=== PATIENT | female | born 1985 | race Caucasian/White ===

== ENCOUNTER 2017-04-10 07:06 | Emergency (ER) | payer OTHER ==
[2017-04-10 07:14] VITALS: BMI 32.4
[2017-04-10] MEDS ORDERED: AMOX TR/POT CLAV 875MG/125MG TABLETS (FP) PO ONE (07:52)
[2017-04-10] MEDS ORDERED: DIPHTH,PERTUSS(ACELL),TET 0.5 ML DISP.SYRIN IM ONE (07:54)
[2017-04-10] MEDS ORDERED: ACETAMINOPHEN 325 MG TABLET (FP) PO ONE (07:55)
[2017-04-10] MEDS ORDERED: ACETAMINOPHEN 325 MG TABLET (FP) ONE (07:59)
[2017-04-10] MEDS ORDERED: AMOX TR/POT CLAV 875MG/125MG TABLETS (FP) ONE (07:59)
--- NOTE | 2017-04-10 08:05 | PDOC ---
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 There are puncture wounds that are not bleeding. Patient states that occurred today. The cat is vaccinated and is inpatient and under treatment with heart failure. The cat is not rabid. Denies any redness or pus. Last tetanus status is unknown. Patient is right-hand dominant. - Physicial Exam PE: 04/10/17 08:05 GENERAL: Awake, alert, and fully oriented, in no acute distress. HEAD: No signs of trauma EYES: PERRLA, EOMI, sclera anicteric, conjunctiva clear ENT: Auricles normal inspection, hearing grossly normal, nares patent, oropharynx clear without exudates. ABDOMEN: Soft, nontender, normoactive bowel sounds. No guarding, no rebound. No masses EXTREMITIES: Normal range of motion, no edema. No clubbing or cyanosis. No cords, erythema, or tenderness. RUE: 2+ radial pulse. sensation intact throughout median/radian/ulnar nerve. Full range of motion of all digits. Small puncture wounds overlying right 2nd digit over the proximal phalanx. < 2 sec cap refill. No erythema or drainage or purulence. NEUROLOGICAL: Cranial nerves II through XII grossly intact. Normal speech, normal gait SKIN: Warm, Dry, normal turgor, no rashes or lesions noted. - Medical Decision Making 04/10/17 08:06 Vital Signs Temp Pulse Resp BP Pulse Ox 98.0 F 82 18 133/77 99 04/10/17 07:11 04/10/17 07:11 04/10/17 07:11 04/10/17 07:11 04/10/17 07:11 Patient with a cat wound not currently infected this time. However, patient will most definitely need prophylactic antibiotics, Augmentin. We'll contact the Department of Health and fax over animal bite form. Tetanus ordered. I instructed the patient to return to the ED in 2 days for wound check. I advised that if she noticed symptoms of infection to return sooner to the ER. Patient verbalized understanding agrees with plan.
--- NOTE | 2017-04-10 08:29 | PDOC ---
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 Patient was trying to feed the cat a pill when she was bitten in the proximal phalange right index finger. Single bite, not actively bleeding. Cat has been confirmed to have been vaccinated for rabies in his records. Currently observed in hospital Timing/Duration: reports: just prior to arrival Severity: Yes: mild Location: reports: extremities Past History - Past Medical History Allergies/Adverse Reactions: Allergies Allergy/AdvReac Type Severity Reaction Status Date / Time shellfish derived Allergy Vomiting Verified 04/10/17 07:14 Home Medications: Ambulatory Orders Albuterol Sulfate Inhaler - [Ventolin Hfa Inhaler -] 1 - 2 inh PO BID 04/10/17 Amox-Tr/K Cl [Augmentin - 875Mg Tablet] 1 tab PO BID #14 tablet 04/10/17 Sertraline HCl [Zoloft] 150 mg PO DAILY 04/10/17 Asthma: Yes Psychiatric Problems: Yes (ANXIETY/DEPRESSION) - Psycho/Social/Smoking Cessation Hx Anxiety: Yes Suicidal Ideation: No Smoking History: Never smoked Hx Alcohol Use: Yes (social) Drug/Substance Use Hx: No Substance Use Type: None Review of Systems - Review of Systems Constitutional: No: Symptoms Reported HEENTM: No: Symptoms Reported Respiratory: No: Symptoms reported Cardiac (ROS): No: Symptoms Reported ABD/GI: No: Symptoms Reported : No: Symptoms Reported Musculoskeletal: No: Symptoms Reported, Joint Stiffness Integumentary: No: Bruising, Change in Hair/Nails, Lesions, Pallor Neurological: No: Symptoms reported, Numbness, Paresthesia, Tingling, Tremors, Weakness *Physical Exam - Vital Signs Last Vital Signs Temp Pulse Resp BP Pulse Ox 98.0 F 82 18 133/77 99 04/10/17 07:11 04/10/17 07:11 04/10/17 07:11 04/10/17 07:11 04/10/17 07:11 - Physical Exam General Appearance: Yes: Nourished, Appropriately Dressed. No: Apparent Distress HEENT: positive: EOMI, [place] Neck: positive: Normal Thyroid. negative: Tender Respiratory/Chest: positive: Lungs Clear, Normal Breath Sounds. negative: Chest Tender, Respiratory Distress Cardiovascular: positive: Regular Rhythm, Regular Rate, S1, S2 Gastrointestinal/Abdominal: positive: Normal Bowel Sounds Musculoskeletal: positive: Normal Inspection. negative: Decreased Range of Motion Extremity: positive: Normal Capillary Refill, Normal Inspection, Normal Range of Motion (Puncture wounds on ventral and dorsal proximal phalange of right index finger, not actively bleeding. cap refil 2sec) ED Treatment Course - Medications Given in the ED: ED Medications Discontinued Medications Generic Name Dose Route Start Last Admin Trade Name Freq PRN Reason Stop Dose Admin Acetaminophen 650 mg 04/10/17 07:55 04/10/17 08:06 Tylenol - PO 04/10/17 07:56 650 mg ONCE ONE Administration Amoxicillin/Clavulanate Potassium 1 tab 04/10/17 07:52 04/10/17 08:06 Augmentin - 875mg Tablet PO 04/10/17 07:53 1 tab ONCE ONE Administration Diphtheria/Tetanus/Acell Pertussis 0.5 ml 04/10/17 07:54 04/10/17 08:05 Boostrix - IM 04/10/17 07:55 0.5 ml .ONCE ONE Administration Medical Decision Making - Medical Decision Making 04/10/17 09:02 31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 Animal vaccinated according to records. Wound was thoroughly cleaned according to vet. hospital procedure. Patient given Augmentin PO + 7 days prescription as well as Tylenol for pain management and Tdap booster. Patient to come back in two days for wound check. Faxed official animal bite form to [place] [facility]. [facility] did the same according to patient. 04/10/17 09:18 *DC/Admit/Observation/Transfer Diagnosis at time of Disposition: Cat bite of finger - Discharge Dispostion Admit: No - Prescriptions Prescriptions: Amox-Tr/K Cl [Augmentin - 875Mg Tablet] 1 tab PO BID #14 tablet - Referrals Referrals: STAFF,NOT ON [Primary Care Provider] - - Patient Instructions Printed Discharge Instructions: DI for Animal Bites, How to Care for a Domestic Animal Bite Additional Instructions: Come back to Emergency Department in 2 days for wound check. Please take antibiotic as prescribed. - Post Discharge Activity Work/School Note: Back to Work
[2017-04-10 09:38] VITALS: BP 114/75; PULSE 81; TEMP 98.1
== END 2017-04-10 09:30 | disposition home or self-care (01) ==
LOC: JER 07:06
PROC: 3E0234Z Introduction of Serum, Toxoid and Vaccine into Muscle, Percutaneous Approach (ICD-10-PCS; principal; 2017-04-10)
DX: S61.250A Open bite of right index finger without damage to nail, initial encounter (principal); W55.01XA Bitten by cat, initial encounter; Y93.K9 Activity, other involving animal care; Y92.238 Other place in hospital as the place of occurrence of the external cause; Y99.0 Civilian activity done for income or pay
CPT/HCPCS: 90715; 99282-25

== ENCOUNTER 2017-04-12 07:22 | Emergency (ER) | payer OTHER ==
[2017-04-12 07:54] VITALS: BP 119/66; PULSE 67; TEMP 98; BMI 32.4
--- NOTE | 2017-04-12 08:38 | PDOC ---
Suture Removal/Wound Check HPI - History of Present Illness Chief Complaint: Edema Stated Complaint: WOUND EVALUATION Time Seen by Provider: 04/12/17 08:13 History Source: Yes: Patient Exam Limitations: Yes: No Limitations Treated at: [facility] ED - Previous ED Treatment Type of procedure performed on last visit: Yes: Other (bite wound) Tetanus Immunization: Yes: Up to Date Antibiotics Prescribed: Yes - Onset of Previous Treatment Comment:: 04/12/17 13:25 Patient here for evaluation of Bite to her left index finger sustained 2 days ago. 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 Has been taking Augmentin, and states is mildly improvingless painful, swollen, and no drainage today. Past History - Travel Traveled outside of the country in the last 30 days: No Close contact w/someone who was outside of country & ill: No - Past Medical History Allergies/Adverse Reactions: Allergies shellfish derived Allergy (Verified 04/12/17 07:53) Vomiting Home Medications: Ambulatory Orders Albuterol Sulfate Inhaler - [Ventolin Hfa Inhaler -] 1 - 2 inh PO BID 04/10/17 Amox-Tr/K Cl [Augmentin - 875Mg Tablet] 1 tab PO BID #14 tablet 04/10/17 Sertraline HCl [Zoloft] 150 mg PO DAILY 04/10/17 General: Yes: no pertinent history Surgical History: Yes: No Surgical History - Social History Smoking Status: Never smoked Suture Removal/Wound Check PE - Physical Exam Laceration/Wound Check Symptoms: reports: None Current Severity Level: None Location of Laceration/Wound: left: Finger (has swelling to the PIP of left index finger able to flex and extend but has tenderness along the volar surface. Redness is marked, patient reports is much improved from yesterday. Denies fever ,denies drainage today.) *Review of Systems - Review of Systems Able to Perform ROS?: Yes Constitutional: Yes: Symptoms Reported, See HPI. No: Malaise HEENTM: No: Symptoms Reported Musculoskeletal: Yes: Symptoms Reported, See HPI, Joint Pain, Joint Swelling ( left index finger ) Integumentary: Yes: Symptoms Reported, Erythema All Other Systems: Reviewed and Negative Medical Decision Making - Medical Decision Making 04/12/17 08:40 Erythematous area was marked and strict instructions for elevation and soaking for the next few days. *DC/Admit/Observation/Transfer Diagnosis at time of Disposition: Encounter for wound re-check - Discharge Dispostion Disposition: HOME Condition at time of disposition: Stable Admit: No - Patient Instructions Printed Discharge Instructions: DI for Cat Bite Additional Instructions: Rest, keep hand highly elevated Soak hand as often as possible and is warm and water as possible Follow-up with PMD this week for reevaluation and work clearance Return immediately to emergency department for worsening swelling, redness, pain or fevers. Complete Augmentin as prescribed - Post Discharge Activity Work/School Note: Back to Work
== END 2017-04-12 08:49 | disposition home or self-care (01) ==
LOC: JERFT 07:22
DX: Z09 Encounter for follow-up examination after completed treatment for conditions other than malignant neoplasm (principal)
CPT/HCPCS: 99281-25

== ENCOUNTER 2017-09-03 19:47 | Emergency (ER) | payer SELFPAY ==
[2017-09-03 19:55] VITALS: BP 129/80; PULSE 90; TEMP 97.8; BMI 36.6
[2017-09-03] MEDS ORDERED: SERTRALINE HCL 50 MG TABLET (FP) PO ONE (19:55)
--- NOTE | 2017-09-03 19:55 | PDOC ---
History of Present Illness - General History Source: Patient Exam Limitations: No Limitations - History of Present Illness Initial Comments: 09/03/17 19:59 The patient is a 32 year old female, with a significant past medical history of asthma and depression, who presents to the emergency department for Zoloft refill. She reports it has been three days since she last took her medication. She reports her prescription ran out because she missed her last doctors appointment. She denies recent fevers, chills, headache or dizziness. She denies recent nausea, vomit, diarrhea or constipation. She denies recent dysuria, frequency, urgency or hematuria. She denies recent chest pain or shortness of breath. PAST MEDICAL HISTORY: Depression PAST SURGICAL HISTORY: no significant history FAMILY HISTORY: no pertinent history SOCIAL HISTORY: Pt lives with family and is employed. MEDICATIONS: reviewed ALLERGIES: As per nursing notes General: No fevers or chills, no weakness, no weight loss HEENT: No change in vision. No sore throat,. No ear pain CardioVascular: No chest pain or shortness of breath Respiratory:No cough, or wheezing. Gastrointestinal: no nausea, vomiting, diarrhea or constipation, No rectal bleeding Genitourinary: No dysuria, hematuria, or frequency Musculoskeletal: No joint or muscle pain or swelling Neurologic: No headache, vertigo, dizziness or loss of consciousness Psychiatric: nor depression Skin: No rashes or easy bruising Endocrine: no increased thirst or abnormal weight change Allergic: no skin or latex allergy All other systems reviewed and normal GENERAL: The patient is awake, alert, and fully oriented, in no acute distress. HEAD: Normal with no signs of trauma. EYES: Pupils equal, round and reactive to light, extraocular movements intact, sclera anicteric, conjunctiva clear. EXTREMITIES: Normal range of motion, no edema. NEUROLOGICAL: Normal speech, normal gait. PSYCH: Normal mood, normal affect. SKIN: Warm, Dry, normal turgor, no rashes or lesions noted. <Mitzi Jones - Last Filed: 09/03/17 20:13> - General History Source: Patient Exam Limitations: No Limitations - History of Present Illness Initial Comments: 09/03/17 20:14 A portion of this note was documented by scribe services under my direction. I have reviewed the details of the note, within reason, and agree with the documentation. The case summary and management plan written by me. Assessment and plan: This is a 32-year-old female who ran out of her Zoloft because she had a change in her insurance. Patient contacted her right wrist to is away for the weekend. Patient was given Zoloft here and a prescription for enough medication to get her through until her psychiatrist comes back after [place]. <Jerri Hooker I - Last Filed: 09/03/17 20:15> - General Chief Complaint: RX Refill Stated Complaint: MEDICATION REFILL Time Seen by Provider: 09/03/17 19:49 Past History <Mitzi Jones - Last Filed: 09/03/17 20:13> - Past Medical History Asthma: Yes Psychiatric Problems: Yes (ANXIETY/DEPRESSION) - Suicide/Smoking/Psychosocial Hx Smoking History: Never smoked Hx Alcohol Use: Yes (SOCIALLY) Drug/Substance Use Hx: No Substance Use Type: None <Jerri Hooker I - Last Filed: 09/03/17 20:15> - Past Medical History Allergies/Adverse Reactions: Allergies Allergy/AdvReac Type Severity Reaction Status Date / Time shellfish derived Allergy Vomiting Verified 09/03/17 19:48 Home Medications: Ambulatory Orders Sertraline HCl [Zoloft] 150 mg PO DAILY 04/10/17 Albuterol Sulfate Inhaler - [Ventolin Hfa Inhaler -] 1 - 2 inh PO QID PRN Sertraline HCl [Zoloft -] 150 mg PO DAILY #15 tablet 09/03/17 *Physical Exam - Vital Signs Last Vital Signs Temp Pulse Resp BP Pulse Ox 97.8 F 90 18 129/80 99 09/03/17 19:50 09/03/17 19:50 09/03/17 19:50 09/03/17 19:50 09/03/17 19:50 <Mitzi Jones - Last Filed: 09/03/17 20:13> *DC/Admit/Observation/Transfer - Attestations Scribe Attestion: 09/03/17 19:59 Documentation prepared by Mitzi Jones, acting as medical technologist prn for Jerri Hooker MD. <Mitzi Jones - Last Filed: 09/03/17 20:13> <NhungJerri Ashley - Last Filed: 09/03/17 20:15> Diagnosis at time of Disposition: Medication refill - Discharge Dispostion Disposition: HOME Condition at time of disposition: Good - Prescriptions Prescriptions: Sertraline HCl [Zoloft -] 150 mg PO DAILY #15 tablet - Patient Instructions Additional Instructions: Take Zoloft 150 mg a day. Call your doctor in the morning to see if you can get a hold of your doctor and get a prescription. In the meantime I have given you a prescription for enough tablets to get U through Wednesday of next week. Return to the emergency department immediately with ANY new, persistent or worsening symptoms. Continue any medications as previously prescribed by your physician. You should follow up with your primary doctor as soon as possible regarding today's emergency department visit. . Please make sure your doctor reviews the results of your emergency evaluation. Thank you for coming to the Emergency Department today for your care. It was a pleasure to see you today. Please note that your evaluation is INCOMPLETE until you follow-up with your doctor.
== END 2017-09-03 20:18 | disposition home or self-care (01) ==
LOC: FER 19:47
CPT/HCPCS: 99282-25